=== PATIENT | female | born 1985 | race African-American/Black ===

== ENCOUNTER 2022-06-06 08:30 | Inpatient (IN) | payer BC ==
[2022-06-06 09:56] LABS: BASO % 0.9 % (0-2.0); EOS % 1.6 % (0-4.5); HEMATOCRIT 41.4 % (32.4-45.2); HEMOGLOBIN 13.6 GM/dL (10.7-15.3); MCH 31.6 pg (25.7-33.7); MCHC 32.8 g/dl (32.0-36.0); MEAN CELL VOLUME 96.3 fl (80-96); MEAN PLT VOLUME 9.7 fl (7.5-11.1); MONO % 6.9 % (3.8-10.2); NEUT % 69.6 % (42.8-82.8); PLATELET COUNT 175 10^3/uL (134-434); RDW 14.6 % (11.6-15.6); WHITE BLOOD COUNT 7.3 K/mm3 (4.0-10.0)
[2022-06-06 10:06] LABS: INR 1.15 (0.83-1.09); PROTHROMBIN TIME (PATIENT) 13.3 SEC (9.7-13.0)
[2022-06-06 10:09] LABS: ACTIVATED PTT 27.1 SECONDS (25.2-36.5)
[2022-06-06 10:14] LABS: CALCIUM 8.8 mg/dL (8.5-10.1)
[2022-06-06 10:15] LABS: BLOOD UREA NITROGEN 8.6 mg/dL (7-18)
[2022-06-06] MEDS ORDERED: DEXTROSE 5%-LACTATED RINGERS 1,000 ML IV SCH (10:15)
[2022-06-06 10:18] LABS: CREATININE 0.7 mg/dL (0.55-1.3)
[2022-06-06 12:02] LABS: SYPHILIS W/ RPR CONF NON-REACTIVE (NONREACTIVE)
[2022-06-06] MEDS ORDERED: CITRIC ACID/SODIUM CITRATE 30 ML UNIT-DOSE CUP PO ONE (12:30)
[2022-06-06] MEDS ORDERED: ELECTROLYTE-148 SOLN 500 ML IV SCH ×2 (12:30→13:00)
[2022-06-06] MEDS ORDERED: FENTANYL CITRATE/PF 50 MCG/ML VIAL ONE (12:43)
[2022-06-06] MEDS ORDERED: morphine SULFATE/PF 1 MG/2 ML (2cc Syringe - QUVA) ONE (12:43)
[2022-06-06 12:52] VITALS: BMI 33.0
[2022-06-06] MEDS ORDERED: KETAMINE HCL 500 MG/10 ML VIAL ONE (14:17)
[2022-06-06] MEDS ORDERED: MIDAZOLAM HCL 2 MG/2 ML SINGLE DOSE VIAL ONE (14:36)
[2022-06-06] MEDS ORDERED: morphine SULFATE/PF 1 MG/2 ML (2cc Syringe - QUVA) EP ONE (14:45)
[2022-06-06 15:23] LABS: CORD BASE EXCESS -1.2 mmol/L (0-2); CORD HCO3 30.3 mmHg (20-29); CORD PCO2 82.2 mmHg (30-78); CORD pH 7.184 (7.14-7.44)
[2022-06-06 15:26] LABS: CORD BASE EXCESS -5.8 mmol/L (0-2); CORD pH 7.223 (7.14-7.44)
[2022-06-06] MEDS ORDERED: OXYTOCIN 20 UNITS in 0.9% NS 20 UNIT/1,000 ML INFUS.BAG IV SCH (16:00)
[2022-06-06] MEDS ORDERED: ONDANSETRON 4 MG/2 ML VIAL IVPUSH PRN (18:59)
[2022-06-06] MEDS ORDERED: ACETAMINOPHEN 1000 MG/100 ML BAG IVPB ONE (19:08)
[2022-06-06] MEDS ORDERED: HYDROmorphone HCl 2 MG/ML VIAL IVPB PRN (19:09)
[2022-06-06] MEDS: FERROUS SO4 325 MG TABLET (FP) PO SCH (22:32)
[2022-06-07] MEDS ORDERED: oxyCODONE HCL 5 MG TABLET PO PRN (03:52)
[2022-06-07 08:13] LABS: BASO % 0.4 % (0-2.0); EOS % 0.4 % (0-4.5); HEMATOCRIT 34.8 % (32.4-45.2); HEMOGLOBIN 11.5 GM/dL (10.7-15.3); LYMPH % 9.1 % (8-40); MEAN CELL VOLUME 96.8 fl (80-96); MEAN PLT VOLUME 10.1 fl (7.5-11.1); MONO % 6.5 % (3.8-10.2); NEUT % 83.6 % (42.8-82.8); PLATELET COUNT 160 10^3/uL (134-434); RBC 3.59 M/mm3 (3.60-5.2); RDW 14.5 % (11.6-15.6); WHITE BLOOD COUNT 9.4 K/mm3 (4.0-10.0)
[2022-06-07] MEDS: PRENATAL VITAMINS W/ FOLIC ACID TABLET (FP) PO SCH (09:24)
[2022-06-07] MEDS: FERROUS SO4 325 MG TABLET (FP) PO SCH ×2 (09:24→21:56)
[2022-06-07] MEDS: IBUPROFEN 600 MG TABLET (FP) PO PRN ×3 (09:53→22:48)
[2022-06-07] MEDS: ACETAMINOPHEN 325 MG TABLET (FP) PO PRN ×3 (12:32→23:49)
[2022-06-07] MEDS: INSULIN (LEVEMIR) 100 UNITS/ML UNITS SQ ONE ×2 (12:35→12:44)
[2022-06-07] MEDS ORDERED: BISACODYL 10 MG SUPP.RECT RC PRN (15:52)
[2022-06-07] MEDS ORDERED: INSULIN SLIDING SCALE (NOVOLOG) 1 VIAL SQ ONE (17:07)
[2022-06-07] MEDS: INSULIN (NOVOLOG) ASPART 100 UNITS/ML 10ML VIAL SQ SCH (17:09)
[2022-06-07 18:17] LABS: HIV INTERPRETATION NEGATIVE (NEGATIVE)
[2022-06-07] MEDS: SIMETHICONE 80 MG TAB.CHEW (FP) PO PRN ×2 (19:41→23:49)
[2022-06-07] MEDS: INSULIN (LEVEMIR) 100 UNITS/ML UNITS SQ SCH (21:09)
[2022-06-08] MEDS: IBUPROFEN 600 MG TABLET (FP) PO PRN ×4 (05:08→19:48)
[2022-06-08] MEDS: SIMETHICONE 80 MG TAB.CHEW (FP) PO PRN ×4 (05:08→19:49)
[2022-06-08] MEDS: ACETAMINOPHEN 325 MG TABLET (FP) PO PRN ×4 (06:37→22:46)
[2022-06-08] MEDS: INSULIN (LEVEMIR) 100 UNITS/ML UNITS SQ SCH (06:54)
[2022-06-08] MEDS: INSULIN (NOVOLOG) ASPART 100 UNITS/ML 10ML VIAL SQ SCH ×4 (06:55→19:45)
[2022-06-08] MEDS: FERROUS SO4 325 MG TABLET (FP) PO SCH ×2 (09:45→21:08)
[2022-06-08] MEDS: PRENATAL VITAMINS W/ FOLIC ACID TABLET (FP) PO SCH (09:45)
[2022-06-08] MEDS ORDERED: INSULIN (LEVEMIR) 100 UNITS/ML UNITS SQ SCH ×2 (18:35→22:00)
[2022-06-09] MEDS: IBUPROFEN 600 MG TABLET (FP) PO PRN ×2 (01:53→08:07)
[2022-06-09] MEDS: SIMETHICONE 80 MG TAB.CHEW (FP) PO PRN (01:53)
[2022-06-09] MEDS ORDERED: INSULIN (LEVEMIR) 100 UNITS/ML UNITS SQ SCH (07:00)
[2022-06-09] MEDS: INSULIN (NOVOLOG) ASPART 100 UNITS/ML 10ML VIAL SQ SCH ×2 (08:33→11:38)
[2022-06-09 09:13] LABS: BASO % 0.3 % (0-2.0); EOS % 2.1 % (0-4.5); HEMATOCRIT 34.5 % (32.4-45.2); HEMOGLOBIN 11.4 GM/dL (10.7-15.3); LYMPH % 15.7 % (8-40); MCHC 32.9 g/dl (32.0-36.0); MEAN CELL VOLUME 97.2 fl (80-96); MEAN PLT VOLUME 9.5 fl (7.5-11.1); MONO % 5.2 % (3.8-10.2); NEUT % 76.7 % (42.8-82.8); PLATELET COUNT 183 10^3/uL (134-434); RBC 3.55 M/mm3 (3.60-5.2); RDW 14.8 % (11.6-15.6); WHITE BLOOD COUNT 5.3 K/mm3 (4.0-10.0)
[2022-06-09] MEDS: PRENATAL VITAMINS W/ FOLIC ACID TABLET (FP) PO SCH (09:15)
[2022-06-09] MEDS: FERROUS SO4 325 MG TABLET (FP) PO SCH (09:15)
[2022-06-09 09:34] VITALS: BP 125/78; PULSE 100; RESP 18; TEMP 98.2
== END 2022-06-09 13:00 | disposition home or self-care (01) | DRG 786 ==
LOC: JLDR 08:30 → J3W 17:05
PROVIDERS: ADMIT Obstetrics & Gynecology Maternal & Fetal Medicine; ATTEND Obstetrics & Gynecology Maternal & Fetal Medicine
PROC: 10D00Z1 Extraction of Products of Conception, Low, Open Approach (ICD-10-PCS; principal; 2022-06-06)
DX: O34.211 Maternal care for low transverse scar from previous cesarean delivery (principal); O24.02 Pre-existing type 1 diabetes mellitus, in childbirth; Z3A.38 38 weeks gestation of pregnancy; Z37.0 Single live birth
CPT/HCPCS: 36415; 36600; 80048; 82803; 82962; 85025; 85610; 85730; 86780; 86850; 86900; 86901; 87389; 88307-TC; C9803-CS; U0003; U0005

== ENCOUNTER 2023-06-09 11:40 | Emergency (ER) | payer BC ==
[2023-06-09 11:50] VITALS: BP 132/78; PULSE 96; RESP 18; TEMP 99.2; BMI 29.7
[2023-06-09 13:49] LABS: EOS % 2.8 % (0-4.5); HEMOGLOBIN 14.1 GM/dL (10.7-15.3); LYMPH % 28.1 % (8-40); MCH 31.1 pg (25.7-33.7); MCHC 33.6 g/dl (32.0-36.0); MEAN CELL VOLUME 92.7 fl (80-96); MEAN PLT VOLUME 8.5 fl (7.5-11.1); MONO % 5.5 % (3.8-10.2); NEUT % 62.6 % (42.8-82.8); PLATELET COUNT 269 10^3/uL (134-434); RBC 4.53 M/mm3 (3.60-5.2); RDW 13.5 % (11.6-15.6); WHITE BLOOD COUNT 5.1 K/mm3 (4.0-10.0)
[2023-06-09 13:51] LABS: INR 1.36 (0.83-1.09); PROTHROMBIN TIME (PATIENT) 15.7 SEC (9.7-13.0)
[2023-06-09 14:49] LABS: POTASSIUM 3.8 mmol/L (3.5-5.1)
[2023-06-09 14:50] LABS: CALCIUM 9.8 mg/dL (8.5-10.1)
[2023-06-09 14:51] LABS: ALBUMIN 3.3 g/dl (3.4-5.0); BLOOD UREA NITROGEN 15.9 mg/dL (7-18)
[2023-06-09 14:56] LABS: BILIRUBIN,TOTAL 0.3 mg/dL (0.2-1); TOT PROT 7.6 g/dl (6.4-8.2)
[2023-06-09 16:15] LABS: PH,URINE 5.5 (5.0-8.0); URINE APPEARANCE CLEAR; URINE BILIRUBIN NEGATIVE (NEGATIVE); URINE COLOR YELLOW; URINE GLUCOSE (UA) 3+ (NEGATIVE); URINE KETONE 2+ (NEGATIVE); URINE LEUK ESTERASE NEGATIVE (NEGATIVE); URINE NITRITE NEGATIVE (NEGATIVE); URINE PROTEIN NEGATIVE (NEGATIVE); URINE UROBILINOGEN 0.2 mg/dL (0.2-1.0)
== END 2023-06-09 16:45 | disposition home or self-care (01) ==
LOC: JER 11:40
DX: O26.891 Other specified pregnancy related conditions, first trimester (principal); R10.31 Right lower quadrant pain; O99.611 Diseases of the digestive system complicating pregnancy, first trimester; N32.89 Other specified disorders of bladder; Z3A.01 Less than 8 weeks gestation of pregnancy
CPT/HCPCS: 36415; 76817-TC; 80053; 81003; 84702; 85025; 85610; 86850; 86900; 86901; 87086; 99284-25